=== PATIENT | female | born 1955 | race Two or more races ===

== ENCOUNTER 2022-08-04 05:36 | Emergency (ER) | payer OTHER ==
[~2022-08-04] VITALS: Ht 175.3 cm; Wt 85.0 kg
[2022-08-04] MEDS ORDERED: LIDOCAINE 2%HCL (LOCAL ANESTH.) INJ 10ml MDV IJ ONE (07:30)
[2022-08-04] MEDS ORDERED: HYDROcodone-ACET 5/325MG TAB PO ONE ×2 (07:30→12:15)
[2022-08-04] MEDS ORDERED: HYDROmorphone HCL 2 MG/ML VL/or syr IV ONE (12:45)
[2022-08-04 13:00] VITALS: BP 134/55
[2022-08-04] MEDS ORDERED: HYDR1TAB97 PO (14:05)
== END 2022-08-04 14:45 | disposition home or self-care (01) ==
LOC: EDBD 05:36 → ER 05:36
DX: S62.102A Fracture of unspecified carpal bone, left wrist, initial encounter for closed fracture (principal); E78.5 Hyperlipidemia, unspecified; E11.9 Type 2 diabetes mellitus without complications; Z88.8 Allergy status to other drugs, medicaments and biological substances; Z86.73 Personal history of transient ischemic attack (TIA), and cerebral infarction without residual deficits; W01.198A Fall on same level from slipping, tripping and stumbling with subsequent striking against other object, initial encounter; Y93.89 Activity, other specified; Y92.89 Other specified places as the place of occurrence of the external cause; Y99.8 Other external cause status
CPT/HCPCS: 25605; 73060; 73070; 73090; 73100; 73110; 99285; J2001